=== PATIENT | female | born 1965 | race Two or more races ===

== ENCOUNTER 2022-12-07 10:11 | Emergency (ER) | payer MEDICAID, OTHER ==
[~2022-12-07] VITALS: Ht 162.6 cm; Wt 82.0 kg
[2022-12-07 10:35] LABS: Basophils # (auto) 0 10 ^3/uL (0-0.2); Eosinophils # (auto) 0 10 ^3/uL (0-0.8); Hematocrit 39.8 % (36.0-46.0); Lymphocytes # (auto) 1.6 10 ^3/uL (0.4-5.4); Lymphocytes % (auto) 35.2 % (10.0-50.0); Mean Corpuscular Hemoglobin 29.9 pg (28.0-32.0); Mean Corpuscular Hgb Conc. 32.8 g/dL (32.0-36.0); Mean Corpuscular Volume 91.3 fL (80.0-100.0); Monocytes # (auto) 0.3 10 ^3/uL (0-1.3); Monocytes % (auto) 6.3 % (0.0-12.0); Neutrophils # (auto) 2.6 10 ^3/uL (1.6-8.6); Neutrophils % (auto) 56.5 % (37.0-80.0); Red Blood Cells 4.36 10^6/uL (4.0-5.20); Red Cell Distribution Width 13.9 % (11.8-14.3); White Blood Cell 4.6 10^3/uL (4.4-10.8)
[2022-12-07 10:53] LABS: Albumin 3.3 g/dL (3.4-5.0); Calcium 8.6 mg/dL (8.5-10.1); Potassium 4.5 mmol/L (3.5-5.1)
[2022-12-07 10:57] LABS: BUN/Creatinine Ratio 14.3 (10.0-20.0); Bilirubin, Total 0.5 mg/dL (0.2-1.0); Total Protein 6.5 g/dL (6.4-8.2)
[2022-12-07 11:49] LABS: Urine WBC None Seen /hpf (0 - 5)
[2022-12-07 12:58] LABS: Urine Bacteria NONE SEEN /hpf (None Seen); Urine Blood Negative /uL (Negative); Urine Specific Gravity 1.003 (1.001-1.035)
[2022-12-07 15:00] VITALS: BP 128/70
== END 2022-12-07 13:27 | disposition home or self-care (01) ==
LOC: ER 10:11
DX: R07.89 Other chest pain (principal); B34.9 Viral infection, unspecified; R51.9 Headache, unspecified
CPT/HCPCS: 36415; 70450; 71046; 80053; 81001; 84484; 85025; 93005

== ENCOUNTER 2024-07-30 06:58 | Emergency (ER) | payer MEDICAID ==
[~2024-07-30] VITALS: Ht 162.6 cm; Wt 90.0 kg
[~2024-07-30 06:58] MED LIST: ESTR1DIS5 TD
--- NOTE | 2024-07-30 07:43 | ECG ---
[facility] Test Date: 2024-07-30 Test Time: 07:37:22 Pat Name: STEW PIKE Department: ER Room: Gender: F Senior Technical Project Manager: SOREN : 1965 Requested By: MAXIMO MARVIN Order Number: [id number] Reading MD: Cosme Lu Measurements Intervals [place] Rate: 61 P: 50 NC: 165 QRS: 40 QRSD: 91 T: 33 QT: 411 QTc: 414 Interpretive Statements Sinus rhythm Electronically Signed On 08-01-2024 13:06:15 PST by Cosme Lu Please click the below link to view image of tracing.
--- NOTE | 2024-07-30 08:12 | DVH ---
XY CHEST PORTABLE, HISTORY: chest pain COMPARISON: XY CHEST PORTABLE on DOS: 05/07/23 XY CHEST PORTABLE on DOS: 05/07/23 TECHNICAL DATA: 1 view of the chest was obtained. FINDINGS: Lines and tubes: None Cardiomediastinal silhouette: normal Pulmonary vasculature: normal Lung expansion: normal Lung airspace: normal Lung interstitium: normal Pleura: normal Pneumothorax: no Bones: Unremarkable Other: no IMPRESSION: No acute intrathoracic abnormality.
[2024-07-30 08:20] VITALS: PULSE 64; RESP 16; O2SAT 99
--- NOTE | 2024-07-30 08:41 | ED.PDOC ---
History of Present Illness HPI Comments 58 y/o F, with a Hx of HLD, HTN, and obesity, presents with c/o nose bleed and generalized bodyaches, today. Patient endorses on having bodyaches, intermittently, for 1x week, with additional onset of nose bleeding, this morning, at around 0445. Patient states on being awoken from her sleep with a runny nose and attempting to clear her congestion prior to bleeding onset. She also comments on "spitting out blood clots" several times that were mixed with mucus. She denies having any fever, chills, nausea, vomiting, or other associated symptoms or modifiers at this time. Chief Complaint: Chest Pain Time Seen by MD: 07:55 Primary Care Provider: KRISTEN Reviewed Notes: Nurses Notes, Medications, Allergies Allergies: Coded Allergies: Aspirin (Verified Allergy, Unknown, 05/08/23) Codeine (Verified Allergy, Unknown, 05/07/23) Hydromorphone (Verified Allergy, Unknown, 05/07/23) Morphine (Verified Allergy, Unknown, 05/07/23) Oxycodone (Verified Allergy, Unknown, 05/07/23) Home Meds Reported Medications Estradiol (Estradiol) 0.038 Mg/24 Hr Dis, 0-0.038 TD 2 X WEEK/WEDNESDAY AND Wednesday05/08/23 Information Source: Patient Mode of Arrival: Ambulatory Severity: Moderate Timing: Hours Duration: Since onset Prehospital treatment: None Past Medical History PAST MEDICAL HISTORY: High Lipids, HTN Past Medical History (Other): obesity Surgical History: Hysterectomy, Tonsillectomy, Tubal Ligation Surgical History (Other): gastric sleeve [employer] History: No Pertinent [employer] INTERN History Family History Family History: Reviewed,noncontributory to illness Social History Smoker: Non-Smoker Alcohol: Denies ETOH Use Drugs: Denies Drug Use Lives In: Home EENTM: reports: nose bleeding Musculoskeletal: reports: others (generalized bodyaches ) All Other Systems: Reviewed and Negative (negative unless otherwise stated above or in HPI) Physical Exam General Appearance: No Apparent Distress, Normal HEENT: Head, Normal ENT Inspection, Pharynx Normal Neck: Full Range of Motion, Non-Tender Respiratory: Chest Non-Tender, Lungs Clear, No Accessory Muscle Use, No Respiratory Distress, Normal Breath Sounds Cardiovascular: No Edema, No Murmur, No Gallop, Normal Peripheral Pulses, Regular Rate/Rhythm Breast Exam: Deferred Gastrointestinal: Non Tender, Normal Bowel Sounds, Soft Genitalia: Deferred Pelvic: Deferred Rectal: Deferred Extremities: No calf tenderness, Normal capillary refill, Normal inspection, Normal range of motion, Non-tender, No pedal edema Neurologic: Alert, piano technician II-XII nml as Tested, No Motor Deficits, Normal Affect, Normal Mood, No Sensory Deficits Cerebellar Function: NOT DONE Reflexes: None Skin: Dry, Normal Color, Warm Lymphatic: NOT DONE Was a procedure done? Was a procedure done?: No EKG EKG : Pulse Rate (adult): 61 [place]: Normal Cardiac Rhythm: NSR Block: None Hypertrophy: None ST: Normal Differential Dx Considerations may include: epistaxis, viral syndrome X-Ray, Labs, Meds, VS Vital Signs Date Time Temp Pulse Resp B/P (MAP) Pulse Ox O2 Delivery O2 Flow Rate FiO2 07/30/24 10:49 62 17 156/75 (102) 100 07/30/24 08:41 61 07/30/24 08:20 97.9 64 16 159/78 (105) 99 97.9 07/30/24 08:20 64 16 99 Room Air* 0 21 07/30/24 07:37 61 07/30/24 07:34 98.2 66 18 152/88 (109) 100 Lab Test 07/30/24 11:45 07/30/24 11:15 07/30/24 09:04 07/30/24 08:25 Range/Units Troponin I High Sensitivity < 3 L < 3 L </=34 ng/L White Blood Count 8.3 4.4-10.8 10^3/uL Red Blood Count 4.33 4.0-5.20 10^6/uL Hemoglobin 13.0 12.2-16.2 g/dL Hematocrit 39.5 36.0-46.0 % Mean Corpuscular Volume 91.2 80.0-100.0 fL Mean Corpuscular Hemoglobin 30.1 28.0-32.0 pg Mean Corpuscular Hemoglobin Concent 33.0 32.0-36.0 g/dL Red Cell Distribution Width 13.8 11.8-14.3 % Platelet Count 143 140-450 10^3/uL Mean Platelet Volume 8.4 6.9-10.8 fL Neutrophils (%) (Auto) 57.6 37.0-80.0 % Lymphocytes (%) (Auto) 33.4 10.0-50.0 % Monocytes (%) (Auto) 7.0 0.0-12.0 % Eosinophils (%) (Auto) 1.1 0.0-7.0 % Basophils (%) (Auto) 0.9 0.0-2.0 % Neutrophils # (Auto) 4.7 1.6-8.6 10 ^3/uL Lymphocytes # (Auto) 2.8 0.4-5.4 10 ^3/uL Monocytes # (Auto) 0.6 0-1.3 10 ^3/uL Eosinophils # (Auto) 0.1 0-0.8 10 ^3/uL Basophils # (Auto) 0.1 0-0.2 10 ^3/uL Nucleated Red Blood Cells 0.1 % Influenza Type A Antigen Negative Negative Influenza Type B Antigen Negative Negative SARS-CoV-2 Antigen (Rapid) Negative NEGATIVE Test 07/30/24 08:09 07/30/24 07:38 Range/Units Prothrombin Time 11.0 9.3-11.8 sec Prothrombin Time INR 1.04 0.9-1.15 Activated Partial Thromboplast Time 29.5 24.5-34.5 SEC D-Dimer, Quantitative 0.34 0.0-0.49 mg/L FEU Sodium Level 142 136-145 mmol/L Potassium Level 4.1 3.5-5.1 mmol/L Chloride Level 107 98-107 mmol/L Carbon Dioxide Level 30 20-31 mmol/L Anion Gap 5 5-15 Blood Urea Nitrogen 11 9-23 mg/dL Creatinine 0.86 0.550-1.02 mg/dL Glomerular Filtration Rate Calc 78 >90 mL/min BUN/Creatinine Ratio 12.8 10.0-20.0 Serum Glucose 92 74-106 mg/dL Calcium Level 9.6 8.7-10.4 mg/dL Magnesium Level 2.1 1.6-2.6 mg/dL Total Bilirubin 0.6 0.2-1.0 mg/dL Aspartate Amino Transferase (AST) 14 13-40 U/L Alanine Aminotransferase (ALT) 13 7-40 U/L Alkaline Phosphatase 87 46-116 U/L Troponin I High Sensitivity < 3 L </=34 ng/L B-Type Natriuretic Peptide 26.35 0-100 pg/mL Total Protein 7.1 5.7-8.2 g/dL Albumin 4.0 3.2-4.8 g/dL Urine Color Light-yellow Yellow Urine Clarity Turbid H Clear Urine pH 8.0 5.0-9.0 Urine Specific [place] 1.019 1.001-1.035 Urine Protein Negative Negative Urine Ketones Negative Negative Urine Blood Negative Negative /uL Urine Nitrite Negative Negative Urine Bilirubin Negative Negative Urine Urobilinogen Normal Negative mg/dL Urine Leukocyte Esterase Negative Negative /uL Urine RBC 1 0 - 4 /hpf Urine WBC 1 0 - 5 /hpf Urine Squamous Epithelial Cells Few <5 /hpf Urine Bacteria None seen None Seen /hpf Urine Glucose Normal Normal mg/dL [place] [id number] Ph: [phone] DIAGNOSTIC IMAGING Diagnostic Imaging Report : [id number] Signed PATIENT: STEW PIKE ACCT: [id number] UNIT: [id number] : 1965 LOC: ER ROOM / BED: / AGE / SEX: 58 / F ADM STATUS: REG ER SERVICE 0 ORDERING PHYSICIAN: MAXIMO MARVIN MD PROCEDURE(s): CXRP - CHEST PORTABLE REASON: chest pain ORDER NUMBER(s): [id number], ACCESSION NUMBER(s): [id number] XY CHEST PORTABLE, HISTORY: chest pain COMPARISON: XY CHEST PORTABLE on DOS: 05/07/23 XY CHEST PORTABLE on DOS: 05/07/23 TECHNICAL DATA: 1 view of the chest was obtained. FINDINGS: Lines and tubes: None Cardiomediastinal silhouette: normal Pulmonary vasculature: normal Lung expansion: normal Lung airspace: normal Lung interstitium: normal Pleura: normal Pneumothorax: no Bones: Unremarkable Other: no IMPRESSION: No acute intrathoracic abnormality. ATED BY: CHAO LAGUNAS MD DICTATED DATE/TIME: 07/30/24808 SIGNED BY: CHAO LAGUNAS MD SIGNED DATE/TIME: 07/30/24808 CC: X-Ray, Labs, Meds, VS Comment This is a well-appearing 58-year-old female presents secondary to epistaxis and cough. She states she has been feeling under the weather last few days. Today, she woke up with a slight nosebleed. She coughed up to blood clots and became concerned. Here, she denies bleeding, she has no other complaints as fever, chills, sweats, nausea or vomiting. She endorses very mild generalized body aches and intermittent cough. As a workup here has benign, the scan was benign, and vitals were benign, she will be discharged home with medication for cough. She is asked to take age and weight appropriate [id number] medication the, cold. She is asked to avoid contact with her nose. She was follow up with the PCP tomorrow return to the ER for any new/worse has worsening symptoms. She states her understanding. Time of 1ST Reevaluation: 08:25 Reevaluation 1ST: Unchanged Patient Education/Counseling: Diagnosis, Treatment Family Education/Counseling: No Family Present Additional Information I reviewed the following notes from patient's past medical encounters: hospital admission discharge summary report on 05/12/23 The following tests were ordered, and results were reviewed by me: EKG, Covid19, rapid influenza A&B, troponin, urine analysis, BNP, D-dimer, PTPTT, Mg2+, CMP, CBC I discussed treatment and results with medical personnel Departure 1 Departure Time of Disposition: 12:38 Impression: Primary Impression: Viral syndrome Additional Impressions: Epistaxis Cough Disposition: 01 HOME / SELF CARE / HOMELESS Condition: Good Critical Care Note Critical Care Time?: No Stability Stability form required: No Heart Score Heart Score: Heart Score Response (Comments) Value History N/A 0 EKG Normal 0 Age 45-64 1 Risk Factors >3 or Hx ASHD 2 Troponin N/A 0 Total 3 I personally scribed for MAXIMO MARVIN MD ([email or web address]) on 07/30/24 at 08:41. Electronically submitted by Michael Julian [email or web address]). MAXIMO MARVIN MD Jul 30, 2024 08:41
[2024-07-30 08:50] LABS: Alanine Aminotransferase 13 U/L (7-40); Alkaline Phosphatase 87 U/L (46-116); Anion Gap 5 (5-15); Aspartate Aminotransferase 14 U/L (13-40); BUN/Creatinine Ratio 12.8 (10.0-20.0); Bilirubin, Total 0.6 mg/dL (0.2-1.0); Blood Urea Nitrogen 11 mg/dL (9-23); Calcium 9.6 mg/dL (8.7-10.4); Carbon Dioxide 30 mmol/L (20-31); Glucose 92 mg/dL (74-106); Magnesium 2.1 mg/dL (1.6-2.6); Potassium 4.1 mmol/L (3.5-5.1); Sodium 142 mmol/L (136-145); Total Protein 7.1 g/dL (5.7-8.2)
[2024-07-30 08:55] LABS: Chloride 107 mmol/L (98-107); INR 1.04 (0.9-1.15); Partial Thromboplastin Time 29.5 SEC (24.5-34.5)
[2024-07-30 09:43] LABS: Urine Bacteria None Seen /hpf (None Seen)
[2024-07-30 10:03] LABS: Urine Blood Negative /uL (Negative); Urine Clarity Turbid (Clear); Urine Color Light-Yellow (Yellow); Urine Protein, UAD Negative (Negative); Urine Specific Gravity 1.019 (1.001-1.035); Urine Urobilinogen Normal (Negative); Urine WBC 1 /hpf (0 - 5)
[2024-07-30 10:03] LABS: COVID19 ANTIGEN SOFIA FIA NEGATIVE (NEGATIVE); Rapid Influenza A Negative (Negative); Rapid Influenza B Negative (Negative)
[2024-07-30 11:44] LABS: Basophils # (auto) 0.1 10 ^3/uL (0-0.2); Eosinophils # (auto) 0.1 10 ^3/uL (0-0.8); Nucleated Red Blood Cells % 0.1 %
[2024-07-30 11:47] LABS: Basophils % (auto) 0.9 % (0.0-2.0); Eosinophils % (auto) 1.1 % (0.0-7.0); Hematocrit 39.5 % (36.0-46.0); Lymphocytes # (auto) 2.8 10 ^3/uL (0.4-5.4); Lymphocytes % (auto) 33.4 % (10.0-50.0); Mean Corpuscular Hemoglobin 30.1 pg (28.0-32.0); Mean Corpuscular Volume 91.2 fL (80.0-100.0); Monocytes # (auto) 0.6 10 ^3/uL (0-1.3); Neutrophils # (auto) 4.7 10 ^3/uL (1.6-8.6); Neutrophils % (auto) 57.6 % (37.0-80.0); Red Blood Cells 4.33 10^6/uL (4.0-5.20); Red Cell Distribution Width 13.8 % (11.8-14.3); White Blood Cell 8.3 10^3/uL (4.4-10.8)
[2024-07-30 12:18] LABS: Platelet Count (auto) 143 10^3/uL (140-450)
[2024-07-30 13:02] VITALS: BP 159/84; PULSE 67; RESP 18; TEMP 97.7; O2SAT 100
== END 2024-07-30 13:04 | disposition home or self-care (01) ==
LOC: ER 06:58
DX: R04.0 Epistaxis (principal); J10.1 Influenza due to other identified influenza virus with other respiratory manifestations; E78.5 Hyperlipidemia, unspecified; E66.9 Obesity, unspecified; I10 Essential (primary) hypertension; Z20.822 Contact with and (suspected) exposure to COVID-19; Z88.5 Allergy status to narcotic agent; Z88.6 Allergy status to analgesic agent; Z90.710 Acquired absence of both cervix and uterus; Z68.34 Body mass index [BMI] 34.0-34.9, adult
CPT/HCPCS: 36415; 71045; 80053; 81001; 83735; 83880; 84484; 85025; 85379; 85610; 85730; 87426; 87804; 93005